=== PATIENT | male | born 1960 | race Two or more races ===

== ENCOUNTER 2024-06-12 05:50 | Emergency (ER) | payer MEDICAID, SELFPAY ==
[2024-06-12] VITALS (7 sets, daily range): BP systolic 78–116; BP diastolic 61–67; PULSE 61–184; RESP 15–93; TEMP 36.4–36.6; O2SAT 96–99; BMI 29.6
--- NOTE | 2024-06-12 05:58 | EKG_ITS ---
[facility] Test Date: 2024-06-12 Pat Name: RENAE CARBAJAL Department: Room: - Gender: Male [employer]: : 1960 Requested By: ED Temporary Provider Order Number: [id number] Reading MD: ED Temporary Provider Measurements Intervals [place] Rate: 186 P: [place]: QRS: -63 QRSD: 100 T: 50 QT: 257 QTc: 453 Interpretive Statements SUPRAVENTRICULAR TACHYCARDIA PATTERN CONSISTENT WITH PULMONARY DISEASE INCOMPLETE RIGHT BUNDLE BRANCH BLOCK [90+ ms QRS DURATION, TERMINAL R IN V1/V2, 40+ ms S IN I/aVL/V4/V5/V6] LEFT ANTERIOR FASCICULAR BLOCK [QRS AXIS <= -45, QR IN I, RS IN II] ST DEPRESSION, CONSIDER SUBENDOCARDIAL INJURY [0.1+ mV ST DEPRESSION] CRITICAL TEST RESULT No previous ECG available for comparison /[id number]/[email or web address]/[id number]
--- NOTE | 2024-06-12 06:22 | PD.EDWEAK ---
ED Weakness RME/HPI General Chief complaint: General Adult/Misc Complain Stated complaint: LOW BLOOD PRESSURE Arrival date/time: 06/12/24 05:50 Limitations: no limitations RME / HPI RME / HPI Narrative: DR. GRIMALDO MAIN ED EVALUATION: 64 year old male with past medical history significant for hypertension and diabetes presents to the Emergency Department with complaints of hypotension and generalized weakness. When I saw him at 6 AM he was in SVT and he converted with carotid massage. No chest pain or other symptoms reported at this time. Per , yesterday they increased his lisinopril form 20 mg to 40 mg. Related Data Home Medications ?Medication ?Instructions ?Recorded ?Confirmed Metformin Hcl 1,000 mg PO ##0 08/28/08 glipizide 10 mg tablet 10 mg PO ##0 08/28/08 lisinopril 20 mg tablet 20 mg PO ##0 08/28/08 lovastatin 40 mg tablet 40 mg PO ##0 08/28/08 Previous Rx's ?Medication ?Instructions ?Recorded levofloxacin 500 mg tablet 500 mg PO Q24H 6 days #6 tabs 06/12/24 Allergies Allergy/AdvReac Type Severity Reaction Status Date / Time No Known Allergies Allergy Unknown Uncoded 06/12/24 05:51 Review of Systems Review of Systems Systems Reviewed: All systems reviewed, normal except as documented Narrative Review of Systems: GEN: No fever, no chills, no weight loss EYES: No discharge, no visual changes, no pain HEENT: No ear pain, no congestion, no sore throat PULM: No shortness of breath, no cough, no congestion CV: No chest pain, no dyspnea on exertion, no palpitations GI: No nausea, no vomiting, no diarrhea, no pain, no constipation : No frequency, no urgency and no dysuria MUSC/SKEL: No joint pain, no back pain SKIN: No rash PSYCH: No hallucinations, no depression HEME/LYMPH: No easy bleeding or bruising tendencies NEURO: + generalized weakness, no headache Past Medical History Past Medical History CARDIAC: Positive Hypertension and Hypotension GASTROINTESTINAL: Positive Gastrointestinal Disorders (inguinal hernia) Social History SMOKING STATUS: Never smoker SUBSTANCE USE: does not use ALCOHOL: Never ED Exam General Limitations: Present no limitations General appearance: Present alert and in no apparent distress Head Head exam: Present atraumatic, normocephalic and normal inspection Eye Eye exam: Present normal appearance, PERRL and EOMI ENT ENT exam: Present normal exam, normal oropharynx and mucous membranes moist Neck Neck exam: Present normal inspection, full ROM and trachea midline Chest Chest inspection: Present normal inspection and symmetric chest wall rise Respiratory Respiratory exam: Present normal lung sounds bilaterally Cardiovascular Cardiovascular exam: Present regular rate, normal rhythm and normal heart sounds Abdominal Exam Abdominal exam: Present soft and normal bowel sounds Extremities Exam Extremities exam: Present normal inspection and full ROM Back Exam Back exam: Present normal inspection and full ROM Neurological Exam Neurological exam: Present alert, oriented X3 and CN II-XII intact Psychiatric Psychiatric exam: Present normal affect and normal mood Skin Skin exam: Present warm, dry, intact and normal color Course Quality Measures none Orders Category Date Time Status [employer] Director Q4H START 00 Care 06/12/24 06:05 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 Care 06/12/24 06:41 Completed Continuous Pulse Oximetry ONCE Care 06/12/24 06:41 Completed EKG (ED ONLY) *Do not use* NOW Care 06/12/24 05:58 Completed EKG (ED ONLY) *Do not use* NOW Care 06/12/24 06:41 Completed Insert IV NOW Care 06/12/24 06:05 Active Insert IV STAT Care 06/12/24 06:41 Completed Discharge Routine Discharge 06/12/24 08:37 Active Discharge Routine Discharge 06/12/24 10:[address] chest wo con Stat Exams 06/12/24 08:42 Completed EKG (ED Only) Stat Exams 06/12/24 05:58 Draft EKG (ED Only) Stat Exams 06/12/24 06:41 Draft XR chest 1V portable Stat Exams 06/12/24 06:41 Completed BNP [B-Type Natriuretic Peptide] Stat Lab 06/12/24 06:06 Completed CBC Stat Lab 06/12/24 06:06 Completed CMP [Comprehensive Metabolic Panel] Stat Lab 06/12/24 06:06 Completed Magnesium Stat Lab 06/12/24 06:06 Completed Partial Thromboplastin Time Stat Lab 06/12/24 06:06 Completed Prothrombin Time with INR Stat Lab 06/12/24 06:06 Completed Troponin I Stat Lab 06/12/24 06:06 Completed Adenosine 6mg Inj [Adenocard Inj] Med 06/12/24 06:11 Discontinued See Dose Instructions .ROUTE .STK-MED ONE Levofloxacin [Levaquin] Med 06/12/24 10:45 Discontinued 500 mg PO X1 ONE Sodium Chloride 0.9% 1000 ml [Ns] 1,000 ml Med 06/12/24 06:41 Discontinued IV 999 mls/hr Oxygen Delivery NOW RT 06/12/24 06:41 Active Vital Signs Vital signs: Vital Signs Temperature 97.5 F 06/12/24 06:05 Pulse Rate 184 H 06/12/24 06:05 Respiratory Rate 17 06/12/24 06:05 Blood Pressure 91/61 06/12/24 06:05 Pulse Oximetry (%) 98 06/12/24 06:05 Oxygen Delivery Method Room Air 06/12/24 06:05 Procedures -ED Procedure Comment The valsalva maneuver was tried, not a success. Carotid maneuver, bilateral, was performed. Patient was in the supine position. Bilateral carotids were massaged but the left side yielded good results. Patient tolerated procedure well, no complications. EKG Interpretation #1: Date of EK06/12/24 Time of EK:59 Rate: 186 Interpretation: Interpreted by me Additional EKG comment: SVT, rate 186, left axis deviation, LVH, no ischemia #2: Date of EK06/12/24 Time of EK:30 Rate: 62 Interpretation: Interpreted by me Additional EKG comment: sinus rhythm, rate 62, left axis deviation, LVH, no ischemia Weakness MDM Narrative MDM Narrative:: I, Kandice Sheldon, ori scribing for and in the presence of Dr. Grimaldo. Patient had a workup to rule out cardiac cause Workup came back negative However the x-ray does show some opacity in the right lower lobe area CAT scan showed presence of consolidation pneumonia in that area Patient was started on Levaquin for 6 days He was given the first dose here This could be a trigger for his SVT Although I think is more likely that the change the dose of the lisinopril from 20 to 40 mg a day caused hypotension and triggered secondary tachycardia Patient was thought to take bacitracin for a 23-hour day Also take antibiotic for the next 5 days Patient was discharged good condition PSVT resolved Is in sinus rhythm EKG showed no ischemic changes Follow assessment PSVT Pneumonia Plan Discharge home with the Levaquin for 6 days Patient data External records reviewed:: None (no previous visits) Clinical information provided by:: patient and spouse Social determinants that could affect healthcare access:: none Patient has the following chronic illnesses:: hypertension and diabetes How is presenting disease/condition affected by chronic disease/condition?: exacerbated by Evaluation data The following diagnostics were reviewed and interpreted by me:: lab results, radiology exam(s) and EKG tracing(s) Lab and/or radiology exams considered but not ordered:: none Interpretation Summary: Procedure(s): XR chest 1V portable Accession Number(s): [id number] cc: Moon Grimaldo MD; Ctaalino Ortiz PA-C; Pranav Freitas MD~ Examination: AP chest single view Technique one AP portable semiupright chest single view INDICATIONS: Low blood pressure today with chest pain FINDINGS: Opacity at the right base medially No significant enlargement cardiac contour Moderate osteopenia IMPRESSION: Recommend lateral chest to follow-up to exclude pneumonia in the right middle lobe Dictated By: Pranav Freitas MD Procedure(s): CT chest wo [facility] Accession Number(s): [id number] cc: Moon Grimaldo MD; Catalino Ortiz PA-C; Pranav Freitas MD~ Examination: CT chest, without intravenous contrast. Sagittal and coronal 2-D reconstructions. Exam date and time: June 12, 2024 at 0918 hours INDICATIONS: Onset chest pain today CTDI:vol (mGy) 13.1 DLP: (mGycm) 524 Technique: Multiple 3.0 mm axial sections of the chest to been obtained. Bone and lung density settings are obtained. Sagittal and coronal 2-D reconstructions have been obtained. Low dose protocols were performed. One or more of the following dose reduction techniques were used; automated exposure control, adjustment of the mA and/or KV according to patient size, use of iterative reconstruction technique. Findings: No thoracic aortic aneurysm dilatation Pulmonary artery segments are not enlarged Mild calcification left anterior descending coronary artery 3 mm pulmonary nodule left lower lobe 3 mm pulmonary nodule right middle lobe Atelectasis versus pneumonia in the right middle lobe No pulmonary edema No visualized liver or splenic lesion No gallstones No pancreatic or adrenal mass Perinephric stranding Moderate thoracic spondylosis IMPRESSION: Subcentimeter pulmonary nodules as above, with this study as baseline recommend 6 month follow-up CT chest without contrast Atelectasis versus pneumonia in the right middle lobe, recommend follow-up Dictated By: Pranav Freitas MD Medications / Prescriptions Medications or Prescriptions considered but not ordered:: none Medication administrations:: Medication Administration History Discontinued Medications Adenosine (Adenosine Inj 3 Mg/Ml Vial) Confirm Administered Dose 0 mg .ROUTE .STK-MED ONE Stop: 06/12/24 06:12 Last Admin: 06/12/24 06:37 Dose: Not Given Documented By: CINTHYA Non-Admin Reason: Cancelled by Provider Sodium Chloride (Ns) 1,000 mls @ 999 mls/hr IV .Q1H1M ONE Stop: 06/12/24 07:41 Last Infusion: 06/12/24 08:16 Dose: Infused Documented By: Admin: 06/12/24 06:49 Dose: 999 mls/hr Documented By: CINTHYA Levofloxacin (Levofloxacin 250 Mg Tablet) 500 mg PO X1 ONE Stop: 06/12/24 10:46 see above Consultations Consultation(s) initiated? (list below): No Diagnosis Weakness Differential Diagnosis: dehydration and other (SVT, hypotension) Most likely diagnosis given after review of the tests above:: Paroxysmal supraventricular tachycardia Penumonia Admission Indicated Admission indicated?: not indicated Admission Request Was there a request for admission?: No Disposition Plan Disposition Plan: Discharge Discharge Attestation Discharge Attestation: The patient and all family members were given an opportunity to ask questions and understood the discharge instructions. Discharge instructions specifically effects, indications for sooner follow up or return to the emergency department, and the expected course of current diagnosis. Patient condition: Stable Discharge Plan Plan Patient Disposition: HOME (Self Care) Patient condition on transfer: Stable Prescriptions/Referrals Prescriptions/Med Rec: New levofloxacin 500 mg tablet 500 mg PO Q24H 6 Days Qty: 6 0RF No Action lisinopril 20 MG tablet 20 mg PO Qty: 0 Patient Comments: 1 TAB ORALLY EVERY DAY glipizide 10 MG tablet 10 mg PO Qty: 0 Patient Comments: 1 TAB ORALLYTWICE A DAY lovastatin 40 MG tablet 40 mg PO Qty: 0 Patient Comments: 1 TAB ORALLY EVERY DAY Metformin Hcl 1,000 MG tablet 1,000 mg PO Qty: 0 Patient Comments: 1 TAB TWICE A DAY Referrals: Catalino Ortiz PA-C [Primary Care Provider] - In 1 week Problem List Clinical Impression: Paroxysmal supraventricular tachycardia, Community acquired pneumonia Patient/Caregiver Discharge Instructions Discharge Activity: activity as tolerated Other Activity Instructions:: Reduce the dose of lisinopril again from 40 to 20 mg a day Education Materials: Supraventricular Tachycardia, Treating Pneumonia, Understanding Supraventricular ..., ED About Arrhythmias, ED Pneumonia (Adult) Additional Instructions: Go back to the lisinopril 20 mg a day dose and do home blood pressure monitoring as it is more reliable than the blood pressure taking in the hospital or a doctor's office Print Language: Yi Stand Alone Forms: Kay Award Info., Work/School Release, Patient Portal Info Letter
--- NOTE | 2024-06-12 06:41 | EKG_ITS ---
[facility] Test Date: 2024-06-12 Pat Name: RENAE CARBAJAL Department: Room: - Gender: Male [employer]: : 1960 Requested By: Moon Grimaldo Order Number: [id number] Reading MD: Moon Grimaldo Measurements Intervals [place] Rate: 62 P: 43 OR: 175 QRS: -46 QRSD: 90 T: 46 QT: 383 QTc: 389 Interpretive Statements SINUS RHYTHM LOW QRS VOLTAGE IN EXTREMITY LEADS [QRS DEFLECTION < 0.5 mV IN LIMB LEADS] LEFT ANTERIOR FASCICULAR BLOCK [QRS AXIS <= -45, QR IN I, RS IN II] Compared to ECG 06/12/2024 05:59:39 Low QRS voltage now present Supraventricular tachycardia no longer present Incomplete right bundle-branch block no longer present ST (T wave) deviation no longer present /store/[email or web address]/[id number].pdf
--- NOTE | 2024-06-12 06:41 | XR_ITS ---
Examination: AP chest single view Technique one AP portable semiupright chest single view INDICATIONS: Low blood pressure today with chest pain FINDINGS: Opacity at the right base medially No significant enlargement cardiac contour Moderate osteopenia IMPRESSION: Recommend lateral chest to follow-up to exclude pneumonia in the right middle lobe
[2024-06-12] MEDS: SODIUM CHLORIDE 0.9% 1000 ML 1,000 ML 999 ML IV (06:49)
[2024-06-12 07:47] LABS: Basophils # (Auto) 0.1 Thou/mm3 (0.0-0.2); Basophils % (Auto) 0 % (0-2.5); Eosinophils # (Auto) 0.4 Thou/mm3 (0.0-0.5); Eosinophils % (Auto) 3 % (0-10); Hematocrit 43.3 % (41.0-53.0); Hemoglobin 14.4 g/dL (13.5-16.0); Immature Granulocytes % (Auto) 1 % (0-0); Immature Granulocytes Auto 0.06 Thou/mm3 (0.00-0.00); Lymphocytes # (Auto) 3.4 Thou/mm3 (1.0-4.8); Lymphocytes % (Auto) 27 % (10-50); Mean Corpuscular HGB Conc 33.3 g/dl (31.0-37.0); Mean Corpuscular Hemoglobin 30.3 pg (25.0-35.0); Mean Corpuscular Volume 91 fL (80-100); Monocytes # (Auto) 0.8 Thou/mm3 (0.0-0.8); Monocytes % (Auto) 6 % (0-12); Neutrophils # (Auto) 7.9 Thou/mm3 (1.8-7.7); Neutrophils % (Auto) 62 % (37-80); Nucleated Red Blood Cell % 0 /100 WBC (0); Platelet Count 198 Thou/mm3 (140-440); RDW Standard Deviation 43.6 fL (35.1-43.9); Red Blood Count 4.76 Miln/mm3 (4.50-5.90); White Blood Count 12.6 Thou/mm3 (3.8-10.6)
[2024-06-12 07:49] LABS: Alanine Aminotransferase 24 U/L (10-49); Albumin, Serum 4.1 gm/dL (3.4-4.8); Albumin/Globulin Ratio 1.5 (1.2-2.2); Alkaline Phosphatase 58 U/L (46-116); Anion Gap 9 (7-16); Aspartate Amino Transferase 24 U/L (0-34); BUN/Creatinine Ratio 19 Ratio (12-20); Bilirubin,Total 0.8 mg/dL (0.3-1.2); Blood Urea Nitrogen 29 mg/dL (9-23); Calcium 9.2 mg/dL (8.3-10.6); Calcium (Corrected) 9.2 mg/dL (8.5-10.1); Carbon Dioxide 24.7 mMol/L (20.0-31.0); Chloride 105 mMol/L (98-107); Creatinine (Component) 1.5 mg/dL (0.6-1.3); Estimated Creatinine Clearance 53.8 mL/min (>60); Globulin 2.8 gm/dL (2.3-3.5); Glucose 132 mg/dL (74-106); Osmolality,Calculated 285 (275-295); Potassium 3.9 mMol/L (3.4-5.1); Sodium 139 mMol/L (136-145); Total Protein 6.9 gm/dL (5.7-8.2); eGFR 52 See Note
[2024-06-12 07:55] LABS: Troponin I 0.094 ng/mL (0.0-0.045)
--- NOTE | 2024-06-12 08:00 | PC.NURSE ---
in to assess pt. pt without any complaints at this time. v/s assessed and syorders recieved and oi
--- NOTE | 2024-06-12 08:00 | PC.NURSE ---
in to assess pt. pt resting quietly at this time without any complaints. v/s assessed and stable. orders received and initiated. call light placed within reach. family member at bedside, plan of care ongoing.
[2024-06-12 08:10] LABS: B-Type Natriuretic Peptide 55 pg/mL (0-100)
--- NOTE | 2024-06-12 08:42 | XR_ITS ---
Examination: CT chest, without intravenous contrast. Sagittal and coronal 2-D reconstructions. Exam date and time: June 12, 2024 at 0918 hours INDICATIONS: Onset chest pain today CTDI:vol (mGy) 13.1 DLP: (mGycm) 524 Technique: Multiple 3.0 mm axial sections of the chest to been obtained. Bone and lung density settings are obtained. Sagittal and coronal 2-D reconstructions have been obtained. Low dose protocols were performed. One or more of the following dose reduction techniques were used; automated exposure control, adjustment of the mA and/or KV according to patient size, use of iterative reconstruction technique. Findings: No thoracic aortic aneurysm dilatation Pulmonary artery segments are not enlarged Mild calcification left anterior descending coronary artery 3 mm pulmonary nodule left lower lobe 3 mm pulmonary nodule right middle lobe Atelectasis versus pneumonia in the right middle lobe No pulmonary edema No visualized liver or splenic lesion No gallstones No pancreatic or adrenal mass Perinephric stranding Moderate thoracic spondylosis IMPRESSION: Subcentimeter pulmonary nodules as above, with this study as baseline recommend 6 month follow-up CT chest without contrast Atelectasis versus pneumonia in the right middle lobe, recommend follow-up
[2024-06-12 08:45] LABS: Partial Thromboplastin Time 28.7 Seconds (22.0-36.0)
[2024-06-12] MEDS: LEVOFLOXACIN 250 MG TABLET 500 MG PO (11:25)
== END 2024-06-12 11:31 | disposition home or self-care (01) ==
PROVIDERS: Emergency Provider Emergency Medicine; PCP Physician Assistant
DX: I47.19 Other supraventricular tachycardia (principal); J18.9 Pneumonia, unspecified organism; I45.10 Unspecified right bundle-branch block; R91.1 Solitary pulmonary nodule; I10 Essential (primary) hypertension
CPT/HCPCS: 36415; 71045; 71250; 80053; 83735; 83880; 84484; 85025; 85610; 85730; 93005; 96360; 99284; J7030; A9270